=== PATIENT | male | born 1945 | race Caucasian/White ===

== ENCOUNTER 2021-07-10 08:52 | Inpatient (IN) | payer OTHER ==
[~2021-07-10] VITALS: Ht 177.8 cm; Wt 76.7 kg
--- NOTE | 2021-07-10 09:00 | NUR ---
BROUGHT BACK TO BED #5 VIA WHEELCHAIR AND PLACED IN BED, TRIAGED. REPORT GIVEN TO MALACHI
--- NOTE | 2021-07-10 09:07 | NUR ---
ER at bedside examining patient.
--- NOTE | 2021-07-10 09:09 | NUR ---
EKG performed at by GIANT TIRE REPAIRER. Physician given copy of EKG for review.
--- NOTE | 2021-07-10 09:11 | NUR ---
Covid swab done and sent to lab.
[2021-07-10] MEDS ORDERED: FUROSEMIDE 40 MG/4 ML VIAL IVP ONE (09:15)
--- NOTE | 2021-07-10 09:22 | NUR ---
Chest X-Ray being done at bedside.
--- NOTE | 2021-07-10 09:34 | NUR ---
# 20 gauge angiocath placed to right AC. Use of asceptic technique. Opsite placed over site. Blood return noted. Blood for lab drawn from site. Flushed with 10 cc of normal saline. No evidence of infiltration noted. Patient tolerated well.
--- NOTE | 2021-07-10 09:41 | NUR ---
Pt not able to provide urine sample at this time so urinal left at bedside.
[2021-07-10 10:00] LABS: BASOPHILS # (AUTO) 0.1 K/uL (0.0-0.2); BASOPHILS % (AUTO) 0.4 % (0.0-2.0); EOSINOPHILS % (AUTO) 0.2 % (0.0-4.0); HEMATOCRIT 27.9 % (36-54); HEMOGLOBIN 9.1 g/dL (14.0-18.0); LYMPHOCYTES # (AUTO) 0.6 K/uL (1.0-5.5); LYMPHOCYTES % (AUTO) 4.7 % (20.5-51.5); MEAN CORPUSCULAR HEMOGLOBIN 31 pg (27-31); MEAN CORPUSCULAR HGB CONC 33 % (32-36); MEAN CORPUSCULAR VOLUME 94 fL (79.0-98.0); MONOCYTES # (AUTO) 1.2 K/uL (0.0-1.0); MONOCYTES % (AUTO) 9.4 % (1.7-9.3); NEUTROPHILS # (AUTO) 11.2 K/uL (1.8-7.7); NEUTROPHILS % (AUTO) 85.3 % (40.0-70.0); PLATELET COUNT (AUTO) 96 K/uL (130-430); RED BLOOD CELL COUNT(AUTO) 2.97 MIL/uL (4.2-6.2); RED CELL DISTRIBUTION WIDTH 20.5 % (9.0-15.0); WHITE BLOOD COUNT (AUTO) 13.2 K/uL (4.8-10.8)
[2021-07-10 10:27] LABS: ANION GAP 8 (5-15); CALCIUM 8.6 mg/dL (8.4-11.0); CHLORIDE 100 mmol/L (98-107); GLUCOSE 111 mg/dL (70-99); POTASSIUM 3.6 mmol/L (3.5-5.1); SODIUM SERUM 133 mmol/L (136-145); UREA NITROGEN, BLOOD 38 mg/dL (8-21)
[2021-07-10 10:31] LABS: INR 1.5 (0.80-1.20); PROTHROMBIN TIME 15.3 SECS (9.5-12.5)
[2021-07-10 10:35] LABS: ALANINE AMINOTRANSFERASE 9 U/L (12-78); ALBUMIN 2.7 g/dL (3.4-4.8); ASPARTATE AMINOTRANSFERASE 19 U/L (10-37); LIPASE 13 U/L (73-393); TOTAL BILIRUBIN 2.1 mg/dL (0.0-1.0)
--- NOTE | 2021-07-10 10:59 | NUR ---
Urine specimen collected and analyzed in ER. Results given to ER .
--- NOTE | 2021-07-10 11:26 | NUR ---
Personal belonging list completed and documented.
[2021-07-10] MEDS ORDERED: FAMO20TA8 PO (11:31)
[2021-07-10] MEDS ORDERED: SOTA80TA PO (11:31)
[2021-07-10] MEDS ORDERED: ASPI-1457 PO (11:31)
[2021-07-10] MEDS ORDERED: ONDA4TAB55 PO (11:31)
[2021-07-10] MEDS ORDERED: CYAN100082 PO (11:31)
[2021-07-10] MEDS ORDERED: FURO-150 PO (11:31)
--- NOTE | 2021-07-10 11:31 | NUR ---
Medication reconciliation completed with information provided by patient. Any prior medication reconciliation on file was reviewed and corrected.
--- NOTE | 2021-07-10 11:54 | NUR ---
Admit bed requested Patient will be admitted to care of . Admitted to medSurg unit. Diagnosis Liver Cirrhosis & Weakness Inpatient Yes Observation No Orientation concerns or request close to nursing station No Covid Status negative On vent or bipap No Isolation requirements No Needs a sitter No From Home Yes Requires Dialysis No Med Rec Completed Yes
--- NOTE | 2021-07-10 13:59 | NUR ---
Patient will be admitted to care of Dr. Heaton. Admitted to MedSurg unit. Will go to room 119B. Belongings list completed. Complete and up to date summary report printed. SBAR report to be given at bedside with opportunity for questions.
[2021-07-10 14:00] VITALS: BP_SYST 133
--- NOTE | 2021-07-10 14:00 | NUR ---
Initial Note Patient admitted to Tele unit, came from ER. Received report from Rosibel. Patient is alert and oriented. Obtained vital signs. Patient states no pain. No respiratory distress noted. Head of the bed elevated, patient is eating some Jell-O. Oriented patient to room and call light use. Bed is locked, alarm is on, and at lowest position. Three side rails are up. Phone and call light are within reach. Patient's is at bedside.
[2021-07-10 14:47] VITALS: BP_SYST 133
--- NOTE | 2021-07-10 16:00 | NUR ---
Patient is resting in bed with eyes closed. Patient reports no pain. No distress noted. Call light within reach. Safety precautions in place.
--- NOTE | 2021-07-10 16:15 | NUR ---
Notes Ecchymosis of chest, R. groin, L groin and hip. Patient also has ecchymosis of R. hand. Pictures taken.
[2021-07-10 16:45] VITALS: BP_SYST 128
--- NOTE | 2021-07-10 18:30 | NUR ---
Closing Notes Patient is in High Honeycutt's position. Patient states "not really hungry" but drinking shaun marlene. Patient is eating little bites of dinner. No pain or distress noted. Safety precautions in place. Call light within reach. and daughter at bedside.
--- NOTE | 2021-07-10 19:35 | NUR ---
OPENING NOTE PT IS SITING UP IN BED WITH HIS BEDSIDE. NO APPARENT DISTRESS NOTED AT THIS TIME. PT IS IN 6/10 PAIN WITH ABDOMINAL DISCOMFORT. BED IS IN LOWEST POSITION WITH FALL AND SAFETY PRECAUTIONS IN PLACE. CALL LIGHT IS WITHIN REACH, PT EDUCATED ON HOW TO USE IT. ALL QUESTIONS ANSWERED AT THIS TIME
[2021-07-10 20:00] VITALS: BP_SYST 113
--- NOTE | 2021-07-10 22:05 | NUR ---
Paged Jair Sampson S/w [place]
[2021-07-10] MEDS: KETOROLAC TROMETHAMINE 30 MG VIAL IVP PRN (22:29)
[2021-07-10] MEDS ORDERED: KETOROLAC TROMETHAMINE 30 MG VIAL IVP PRN (22:45)
[2021-07-10] MEDS: CYANOCOBALAMIN 1000 mCg TABLET PO SCH (22:58)
[2021-07-10] MEDS: FAMOTIDINE 20 MG TABLET PO SCH (22:59)
[2021-07-10] MEDS: SOTALOL HCL 80 MG TABLET PO SCH (23:00)
[2021-07-10] MEDS: ONDANSETRON HCL 4 MG/2 ML VIAL IVP PRN (23:26)
[2021-07-10] MEDS: NORMAL SALINE 5 ML DISP.SYRIN IVF SCH ×2 (23:30)
[2021-07-11 01:12] VITALS: BP_SYST 128
--- NOTE | 2021-07-11 02:34 | NUR ---
CONSULTATION PAGED REASON FOR CONSULTATION: chf WAS CONSULT CALLED? Y PERSON WHO WAS NOTIFIED: Abdulaziz CONSULTING PHYSICIAN: Aamir Sampson REQUESTING PHYSICIAN: Jair Sampson
--- NOTE | 2021-07-11 02:46 | NUR ---
CONSULTATION PAGED REASON FOR CONSULTATION: cirrhosis WAS CONSULT CALLED? Y PERSON WHO WAS NOTIFIED: Maria De Jesus CONSULTING PHYSICIAN: Dr. Keys (Dr. Ren is conflict resolution professional REQUESTING PHYSICIAN: Jair Sampson
--- NOTE | 2021-07-11 03:02 | NUR ---
CONSULTATION PAGED REASON FOR CONSULTATION: leukocytosis WAS CONSULT CALLED? Y PERSON WHO WAS NOTIFIED: Maria De Jesus CONSULTING PHYSICIAN: Howard Lopez REQUESTING PHYSICIAN: Jair Sampson
--- NOTE | 2021-07-11 04:24 | NUR ---
CONSULTATION PAGED REASON FOR CONSULTATION: brit WAS CONSULT CALLED? Y PERSON WHO WAS NOTIFIED: Maria De Jesus CONSULTING PHYSICIAN: Sarah Montoya REQUESTING PHYSICIAN: Jair Sampson
--- NOTE | 2021-07-11 06:52 | NUR ---
CLOSING NOTE PT IS SEMI FOWLERS WITH HIS EYES CLOSED. NO APPARENT DISTRESS NOTED AT THIS TIME. BED IS IN LOWEST POSITION WITH SAFETY PRECAUTIONS IN PLACE. CALL LIGHT IS WITHIN REACH.
[2021-07-11 08:00] VITALS: BP_SYST 95
--- NOTE | 2021-07-11 08:00 | NUR ---
Initial Notes Patient is lying in bed. Ultrasound being done at bedside. Vitals obtained. No pain or distress noted. Family at bedside. Updated plan of care. Safety precautions in place. Call light within reach.
[2021-07-11 08:02] LABS: BASOPHILS % (AUTO) 0.4 % (0.0-2.0); EOSINOPHILS # (AUTO) 0.1 K/uL (0.0-0.4); EOSINOPHILS % (AUTO) 0.8 % (0.0-4.0); HEMATOCRIT 24.6 % (36-54); HEMOGLOBIN 8.2 g/dL (14.0-18.0); LYMPHOCYTES # (AUTO) 0.6 K/uL (1.0-5.5); LYMPHOCYTES % (AUTO) 6.1 % (20.5-51.5); MEAN CORPUSCULAR HEMOGLOBIN 31 pg (27-31); MEAN CORPUSCULAR HGB CONC 33 % (32-36); MEAN CORPUSCULAR VOLUME 93 fL (79.0-98.0); MONOCYTES # (AUTO) 1.1 K/uL (0.0-1.0); MONOCYTES % (AUTO) 11.2 % (1.7-9.3); NEUTROPHILS # (AUTO) 7.8 K/uL (1.8-7.7); NEUTROPHILS % (AUTO) 81.5 % (40.0-70.0); PLATELET COUNT (AUTO) 67 K/uL (130-430); RED BLOOD CELL COUNT(AUTO) 2.64 MIL/uL (4.2-6.2); RED CELL DISTRIBUTION WIDTH 20.4 % (9.0-15.0); WHITE BLOOD COUNT (AUTO) 9.6 K/uL (4.8-10.8)
[2021-07-11 08:03] LABS: ANION GAP 8 (5-15); CALCIUM 8.1 mg/dL (8.4-11.0); CHLORIDE 99 mmol/L (98-107); CREATININE 1.92 mg/dL (0.55-1.30); GLUCOSE 93 mg/dL (70-99); PHOSPHORUS 4.6 mg/dL (2.7-4.5); POTASSIUM 3.1 mmol/L (3.5-5.1); SODIUM SERUM 132 mmol/L (136-145); UREA NITROGEN, BLOOD 39 mg/dL (8-21)
[2021-07-11] MEDS: FAMOTIDINE 20 MG TABLET PO SCH ×2 (08:47→20:51)
[2021-07-11] MEDS: ASPIRIN 81 MG TABLET(ECOTRIN) PO SCH (08:47)
[2021-07-11] MEDS: CYANOCOBALAMIN 1000 mCg TABLET PO SCH ×2 (08:47→20:51)
[2021-07-11] MEDS: SOTALOL HCL 80 MG TABLET PO SCH ×2 (08:51→20:51)
[2021-07-11] MEDS ORDERED: FUROSEMIDE 20 MG/2 ML VIAL IVP SCH (09:00)
[2021-07-11] MEDS: ALBUMIN HUMAN 5% 250 ML IV SCH ×2 (09:38→21:01)
[2021-07-11 12:00] VITALS: BP_SYST 96
--- NOTE | 2021-07-11 12:00 | NUR ---
Notes Patient is resting. Family at bedside. No pain or distress noted. Safety precautions in place. Call light within reach.
[2021-07-11] MEDS ORDERED: POTASSIUM CHLORIDE 20 MEQ TAB.PRT.SR PO ONE (12:30)
[2021-07-11 13:44] LABS: ERYTHROCYTE SEDIMENTATION RATE 11 MM/HR (0-15)
--- NOTE | 2021-07-11 13:45 | NUR ---
Notes Spoke to ultrasound staff, paracentesis will be done tomorrow.
--- NOTE | 2021-07-11 14:30 | NUR ---
blood culture- Called dr. Hari wilcox Re; blood culture results.
--- NOTE | 2021-07-11 14:41 | NUR ---
paracentesis received a call from Subhash of Radiology. per Subhash paracentesis will be done Thursday instead, no tech available Thursday
[2021-07-11] MEDS: VANCOMYCIN HCL 1,000 MG in NS 250 ML IV SCH (15:54)
[2021-07-11 16:00] VITALS: BP_SYST 119
[2021-07-11] MEDS: IBUPROFEN 600 MG TABLET PO PRN (16:07)
[2021-07-11] MEDS: ONDANSETRON HCL 4 MG/2 ML VIAL IVP PRN (16:07)
--- NOTE | 2021-07-11 16:15 | NUR ---
Notes Patient has been cleaned and repositioned. Obtained vitals and urine specimen. Patient is lying down, resting. Safety precautions in place and call light within reach.
[2021-07-11 17:41] LABS: BILIRUBIN,URINE NEGATIVE (NEGATIVE); BLOOD, URINE NEGATIVE (NEGATIVE); CLARITY/URINE CLEAR (CLEAR); COLOR,URINE YELLOW (YELLOW); GLUCOSE,URINE NEGATIVE (NEGATIVE); KETONES,URINE TRACE (NEGATIVE); LEUKOCYTE ESTERASE ,URINE NEGATIVE (NEGATIVE); NITRITE, URINE NEGATIVE (NEGATIVE); PH,URINE 5.5 (5.0-8.0); PROTEIN URINE NEGATIVE (NEGATIVE); UROBILINOGEN,URINE 0.2 (0.2-1.0)
--- NOTE | 2021-07-11 18:25 | NUR ---
Closing Notes Patient is eating dinner, head of the bed is elevated. No distress noted. No pain reported. Family is at bedside. Safety precautions in place. Call light within reach.
[2021-07-11 20:00] VITALS: BP_SYST 92
--- NOTE | 2021-07-11 20:00 | NUR ---
REC'D PT FROM AM NURSE LYING IN BED AWAKE, AOX3, NO DISTRESS OR DISCOMFORT NOTED, BREATHING EVEN AND UNLABORED, JUNCTIONAL/ST DEPRESSION NOTED ON TELE MONITOR, BP STABLE, DENIES PAIN, SIDE RAILS UP X2, BED IN LOWEST WITH WHEELS LOCKED, HOB ELEVATED 30 DEGREE, CALL LIGHT WITHIN IMMEDIATE REACH, EDUCATED PT TO CALL FOR ASSISTANCE WHEN NEEDED, PT VERBALIZED UNDERSTANDING, REPOSITIONED PER COMFORT, WILL CONTINUE TO MONITOR.
[2021-07-11 22:41] LABS: URINE SODIUM, RANDOM 8 mmol/L (40-220)
[2021-07-11] MEDS: NORMAL SALINE 5 ML DISP.SYRIN IVF SCH ×2 (23:07)
--- NOTE | 2021-07-12 | NUR ---
NO CHANGES NOTED FROM PREVIOUS ASSESSMENT, RESTING COMFORTABLY IN BED, WILL CONTINUE TO MONITOR.
[2021-07-12 00:29] VITALS: BP_SYST 99
[2021-07-12] MEDS: NORMAL SALINE 5 ML DISP.SYRIN IVF SCH ×4 (05:59→22:02)
[2021-07-12] MEDS: KETOROLAC TROMETHAMINE 30 MG VIAL IVP PRN (06:21)
--- NOTE | 2021-07-12 06:30 | NUR ---
ROUNDED ON PT, NO S/S OF DISTRESS OR DISCOMFORT NOTED, BREATHING EVEN AND UNLABORED, MEDICATED WITH PAIN MED PRN, RESTING COMFORTABLY, ALL FALLS PROTOCOLS MAINTAINED, CALL LIGHT WITHIN REACH, WILL CONTINUE TO MONITOR.
--- NOTE | 2021-07-12 07:14 | NUR ---
SHIFT CHANGE REPORT REPORT GIVEN TO OTF MCPHERSON FOR CONTINUITY OF CARE, ALL QUESTIONS WERE ANSWERED AND RN VERBALIZED UNDERSTANDING.
[2021-07-12 08:00] VITALS: BP_SYST 103
[2021-07-12 08:23] LABS: BASOPHILS # (AUTO) 0.1 K/uL (0.0-0.2); EOSINOPHILS # (AUTO) 0.1 K/uL (0.0-0.4); EOSINOPHILS % (AUTO) 0.7 % (0.0-4.0); HEMATOCRIT 25.1 % (36-54); HEMOGLOBIN 8.3 g/dL (14.0-18.0); LYMPHOCYTES # (AUTO) 0.5 K/uL (1.0-5.5); LYMPHOCYTES % (AUTO) 3.2 % (20.5-51.5); MEAN CORPUSCULAR HEMOGLOBIN 31 pg (27-31); MEAN CORPUSCULAR HGB CONC 33 % (32-36); MEAN CORPUSCULAR VOLUME 93 fL (79.0-98.0); MONOCYTES # (AUTO) 1.6 K/uL (0.0-1.0); MONOCYTES % (AUTO) 10.3 % (1.7-9.3); NEUTROPHILS # (AUTO) 12.9 K/uL (1.8-7.7); NEUTROPHILS % (AUTO) 84.8 % (40.0-70.0); PLATELET COUNT (AUTO) 53 K/uL (130-430); RED BLOOD CELL COUNT(AUTO) 2.71 MIL/uL (4.2-6.2); RED CELL DISTRIBUTION WIDTH 19.9 % (9.0-15.0); WHITE BLOOD COUNT (AUTO) 15.3 K/uL (4.8-10.8)
[2021-07-12 08:51] LABS: ALANINE AMINOTRANSFERASE 12 U/L (12-78); ALBUMIN 2.6 g/dL (3.4-4.8); ANION GAP 7 (5-15); ASPARTATE AMINOTRANSFERASE 17 U/L (10-37); C-REACTIVE PROTEIN QUANT 9.2 mg/dL (0-0.5); CALCIUM 7.7 mg/dL (8.4-11.0); CHLORIDE 104 mmol/L (98-107); CREATININE 2.81 mg/dL (0.55-1.30); GLUCOSE 106 mg/dL (70-99); PHOSPHORUS 4.2 mg/dL (2.7-4.5); POTASSIUM 4.1 mmol/L (3.5-5.1); SODIUM SERUM 134 mmol/L (136-145); TOTAL BILIRUBIN 2.2 mg/dL (0.0-1.0); UREA NITROGEN, BLOOD 50 mg/dL (8-21)
[2021-07-12 08:53] LABS: INR 1.7 (0.80-1.20); PROTHROMBIN TIME 17.4 SECS (9.5-12.5)
[2021-07-12] MEDS: ASPIRIN 81 MG TABLET(ECOTRIN) PO SCH (08:53)
[2021-07-12] MEDS: FAMOTIDINE 20 MG TABLET PO SCH ×2 (08:53→22:06)
[2021-07-12] MEDS: CYANOCOBALAMIN 1000 mCg TABLET PO SCH ×2 (08:58→22:02)
[2021-07-12] MEDS: IBUPROFEN 600 MG TABLET PO PRN (08:58)
[2021-07-12] MEDS: SOTALOL HCL 80 MG TABLET PO SCH ×2 (08:58→22:05)
[2021-07-12 09:10] LABS: ERYTHROCYTE SEDIMENTATION RATE 7 MM/HR (0-15)
[2021-07-12 09:40] LABS: TOTAL IRON BIND. CAPACITY 73 ug/dL (250-450)
[2021-07-12] MEDS ORDERED: ALBUMIN HUMAN 25% 100 ML IV SCH (12:15)
[2021-07-12 12:27] VITALS: BP_SYST 95
[2021-07-12] MEDS: VANCOMYCIN HCL 1,000 MG in NS 250 ML IV SCH (15:23)
[2021-07-12 16:51] VITALS: BP_SYST 101
[2021-07-12] MEDS: ONDANSETRON HCL 4 MG/2 ML VIAL IVP PRN (16:51)
[2021-07-12] MEDS: ALBUMIN HUMAN 25% 100 ML IV SCH ×2 (16:52→23:01)
[2021-07-12 20:00] VITALS: BP_SYST 93
[2021-07-13] VITALS: BP_SYST 114
[2021-07-13 00:36] VITALS: BP_SYST 110
[2021-07-13] MEDS: ALBUMIN HUMAN 25% 100 ML IV SCH (04:24)
[2021-07-13 07:06] LABS: AFP, TUMOR MARKER 1.5 ng/mL (0.0-8.4); ALPHA-1-ANTITRYPSIN, S 115 mg/dL (101-187); FERRITIN 248 ng/mL (30-400)
[2021-07-13 07:49] LABS: HEMATOCRIT 22.2 % (36-54); HEMOGLOBIN 7.3 g/dL (14.0-18.0); MEAN CORPUSCULAR HEMOGLOBIN 30 pg (27-31); MEAN CORPUSCULAR HGB CONC 33 % (32-36); MEAN CORPUSCULAR VOLUME 92 fL (79.0-98.0); RED BLOOD CELL COUNT(AUTO) 2.41 MIL/uL (4.2-6.2); RED CELL DISTRIBUTION WIDTH 19.4 % (9.0-15.0); WHITE BLOOD COUNT (AUTO) 13.1 K/uL (4.8-10.8)
[2021-07-13 08:06] LABS: HEPATITIS A AB, IgM Negative (Negative); HEPATITIS B CORE AB, IgM Negative (Negative); HEPATITIS B SURFACE AG Negative (Negative)
[2021-07-13 08:13] LABS: PLATELET COUNT (AUTO) 45 K/uL (130-430)
[2021-07-13 08:15] LABS: ALANINE AMINOTRANSFERASE 12 U/L (12-78); ALBUMIN 3.4 g/dL (3.4-4.8); ANION GAP 12 (5-15); ASPARTATE AMINOTRANSFERASE 12 U/L (10-37); CALCIUM 8.6 mg/dL (8.4-11.0); CHLORIDE 100 mmol/L (98-107); CREATININE 3.54 mg/dL (0.55-1.30); GLUCOSE 81 mg/dL (70-99); PHOSPHORUS 4.7 mg/dL (2.7-4.5); POTASSIUM 3.3 mmol/L (3.5-5.1); SODIUM SERUM 134 mmol/L (136-145); TOTAL BILIRUBIN 2.4 mg/dL (0.0-1.0); UREA NITROGEN, BLOOD 53 mg/dL (8-21)
[2021-07-13 08:20] LABS: C-REACTIVE PROTEIN QUANT 9.5 mg/dL (0-0.5)
[2021-07-13] MEDS: SOTALOL HCL 80 MG TABLET PO SCH ×2 (09:00→21:00)
[2021-07-13] MEDS: FAMOTIDINE 20 MG TABLET PO SCH ×2 (09:48→20:59)
[2021-07-13] MEDS: CYANOCOBALAMIN 1000 mCg TABLET PO SCH ×2 (09:48→20:59)
[2021-07-13] MEDS: ASPIRIN 81 MG TABLET(ECOTRIN) PO SCH (09:48)
[2021-07-13 10:00] LABS: ERYTHROCYTE SEDIMENTATION RATE 2 MM/HR (0-15)
[2021-07-13 11:15] LABS: ATYPICAL LYMPHOCYTES % 0 % (0-0); BAND % (MANUAL) 3 % (0-6); BASOPHILS % (MANUAL) 0 % (0-2); EOSINOPHILS % (MANUAL) 0 % (0-7); LYMPHOCYTES % (MANUAL) 2 % (20-46); MONOCYTES % (MANUAL) 3 % (0-11)
[2021-07-13] MEDS ORDERED: POTASSIUM CHLORIDE 20 MEQ TAB.PRT.SR PO ONE (12:30)
--- NOTE | 2021-07-13 12:33 | NUR ---
CONSULT [facility]EMATOLOGY [phone] S/W [facility]
[2021-07-13 12:59] VITALS: BP_SYST 105
[2021-07-13] MEDS ORDERED: ALBUMIN HUMAN 25% 50 ML IV ONE (13:00)
[2021-07-13] MEDS: OCTREOTIDE ACETATE 100 MCG/ML AMP SUBCUT SCH ×2 (14:00→21:00)
[2021-07-13] MEDS: NORMAL SALINE 5 ML DISP.SYRIN IVF SCH ×2 (14:00→21:00)
--- NOTE | 2021-07-13 14:15 | NUR ---
BT INITIATION: Consent signed per PATIENT agreeing to administration of blood. Blood has been type and crossmatched. Blood sent from blood bank. Information on unit of blood checked against patient wristband at bedside by two nurses. All information matches. Patient or responsible green party informed of potential complications associated with blood transfusion. Informed of possible transfusion reaction symptoms. Aware of need to notify nurse at once of itching, shortness of breath, flushing, feeling of impending doom, or other symptoms not previously present. Vital signs taken within 5 minutes prior to initiation of transfusion. RN will remain with patient for first 15 minutes of transfusion at which time vital signs will be re-assessed.
[2021-07-13] MEDS: MIDODRINE HCL 5 MG TABLET (PROAMATINE) PO SCH ×2 (15:00→20:59)
[2021-07-13 16:00] VITALS: BP_SYST 95
[2021-07-13] MEDS: VANCOMYCIN HCL 1,000 MG in NS 250 ML IV SCH (16:00)
[2021-07-13 16:53] LABS: BF APPEARANCE UNSPUN CLEAR (CLEAR); SOURCE/TYPE ,BODY FLUID PARACENTESIS
[2021-07-13 16:54] LABS: BODY FLUID COLOR YELLOW (LT YELLOW); BODY FLUID TOTAL VOLUME 6075 mL; LYMPHOCYTES, BODY FLUID 23 %; NEUTROPHIL, BODY FLUID 77 %; RBC, BODY FLUID 11 /uL; WBC, BODY FLUID 122 /uL
[2021-07-13 20:20] VITALS: BP_SYST 101
--- NOTE | 2021-07-13 20:20 | NUR ---
PM ASSESSMENT; -pt is a/ox 3, episode of forgetfulness noted. Pt denies any chest pain,pain,sob,or any acute distress. IV site patent flushed w/ NS, no s/ s any infiltration noted. Discussed poc, all safety measures, and inform pt not to get OOB, to use call light for assistance, pt & family verbalized understanding. Generalized weakness noted. Bandaid of rt side of abdomen s/p paracentesis site. Fall precaution in place. All safety measures in place. Call light w/in reach, side rails x3. Continue to monitor pt.
--- NOTE | 2021-07-13 21:00 | NUR ---
ROUNDS; -Pt denies any chest pain,pain,sob,or any acute distress. Gave all routine po meds except Betapace b/c low BP 101/54, 60. Fall precaution in place. No family is at bedside this time. All safety measures in place. Call light w/in reach, side rails x3. Continue to monitor pt
--- NOTE | 2021-07-14 00:30 | NUR ---
ROUNDS; Bowel MOVT -Pt denies any chest pain,pain,sob,or any acute distress. Pt is incontinent of large soft yellow bowel movt. Provided perineal care,now pt is dry and cleaned. Fall precaution in place. All safety measures in place. Call light w/in reach, side rails x3. Continue to monitor pt
[2021-07-14 00:46] VITALS: BP_SYST 108
--- NOTE | 2021-07-14 02:15 | NUR ---
ROUNDS; -Pt is asleep. NO s/s any acute distress noted. Fall precaution in place. All safety measures in place. Call light w/in reach, side rails x3. Continue to monitor pt
--- NOTE | 2021-07-14 04:04 | NUR ---
ROUNDS; -Pt is asleep. NO s/s any acute distress noted. Pt's condition stable. Fall precaution in place. All safety measures in place. Call light w/in reach, side rails x3. Continue to monitor pt
[2021-07-14] MEDS: NORMAL SALINE 5 ML DISP.SYRIN IVF SCH ×3 (05:19→21:46)
[2021-07-14] MEDS: OCTREOTIDE ACETATE 100 MCG/ML AMP SUBCUT SCH ×3 (05:19→21:53)
--- NOTE | 2021-07-14 06:47 | NUR ---
CLOSING NOTES; -pt is resting in comfortably. No s/s any chest pain,pain,sob,or any acute distress noted. IV site patent flushed w/ NS, no s/ s any infiltration noted. Fall precaution in place. All safety measures in place. Call light w/in reach, side rails x3. Will endorse to next nurse to continue care.
[2021-07-14 06:48] LABS: BASOPHILS % (AUTO) 0.3 % (0.0-2.0); EOSINOPHILS # (AUTO) 0.1 K/uL (0.0-0.4); HEMATOCRIT 31.7 % (36-54); HEMOGLOBIN 10.6 g/dL (14.0-18.0); LYMPHOCYTES # (AUTO) 0.6 K/uL (1.0-5.5); LYMPHOCYTES % (AUTO) 4.4 % (20.5-51.5); MEAN CORPUSCULAR HEMOGLOBIN 31 pg (27-31); MEAN CORPUSCULAR HGB CONC 34 % (32-36); MEAN CORPUSCULAR VOLUME 92 fL (79.0-98.0); MONOCYTES # (AUTO) 1.9 K/uL (0.0-1.0); MONOCYTES % (AUTO) 14.3 % (1.7-9.3); NEUTROPHILS # (AUTO) 10.5 K/uL (1.8-7.7); RED BLOOD CELL COUNT(AUTO) 3.46 MIL/uL (4.2-6.2); RED CELL DISTRIBUTION WIDTH 18.6 % (9.0-15.0); WHITE BLOOD COUNT (AUTO) 13.1 K/uL (4.8-10.8)
[2021-07-14 07:07] LABS: FOLATE (FOLIC ACID) >20.0 ng/mL (>3.0)
[2021-07-14 07:10] LABS: ANION GAP 11 (5-15); CALCIUM 8.9 mg/dL (8.4-11.0); CHLORIDE 101 mmol/L (98-107); CREATININE 4.29 mg/dL (0.55-1.30); GLUCOSE 109 mg/dL (70-99); PHOSPHORUS 5.2 mg/dL (2.7-4.5); POTASSIUM 4.3 mmol/L (3.5-5.1); SODIUM SERUM 134 mmol/L (136-145); UREA NITROGEN, BLOOD 59 mg/dL (8-21)
[2021-07-14 07:37] LABS: C-REACTIVE PROTEIN QUANT 11.8 mg/dL (0-0.5)
[2021-07-14 08:00] VITALS: BP_SYST 101
--- NOTE | 2021-07-14 08:00 | NUR ---
Opening Notes Patient is laying in bed awake. A/O x4. Vitals as charted. No apparent distress. Patient denies pain. Call light within reach. Safety and fall precautions in place.
[2021-07-14 08:08] LABS: PLATELET COUNT (AUTO) 47 K/uL (130-430)
--- NOTE | 2021-07-14 08:16 | NUR ---
HEMATOLOGY PAGED: CALLED DR TUCKER'S EXCHANGE AND LEFT MESSAGE C/O EXCHANGE RANDY FOR CRITICAL LAB.
[2021-07-14 08:28] LABS: ERYTHROCYTE SEDIMENTATION RATE 2 MM/HR (0-15)
[2021-07-14] MEDS: SOTALOL HCL 80 MG TABLET PO SCH ×2 (09:00→21:45)
[2021-07-14] MEDS: MIDODRINE HCL 5 MG TABLET (PROAMATINE) PO SCH ×3 (09:27→21:45)
[2021-07-14] MEDS: CYANOCOBALAMIN 1000 mCg TABLET PO SCH ×2 (09:27→21:45)
[2021-07-14] MEDS: ASPIRIN 81 MG TABLET(ECOTRIN) PO SCH (09:28)
[2021-07-14] MEDS: FAMOTIDINE 20 MG TABLET PO SCH ×2 (09:28→21:45)
[2021-07-14 13:30] VITALS: BP_SYST 108
[2021-07-14 16:05] VITALS: BP_SYST 125
[2021-07-14 17:11] LABS: HAPTOGLOBIN 16 mg/dL (34-355)
--- NOTE | 2021-07-14 19:00 | NUR ---
BLADDER SCAN: PT REFUSED BLADDER SCAN.
--- NOTE | 2021-07-14 19:43 | NUR ---
Closing Notes Patient is awake laying in bed. No apparent distress noted. Patient denies pain. Call light within reach. Safety and fall precautions in place. All needs met. Endorsed care to music orchestrator RN.
[2021-07-14 19:45] VITALS: BP_SYST 133
--- NOTE | 2021-07-14 19:45 | NUR ---
PM ASSESSMENT; -pt is confused, episode of forgetfulness noted. Pt attempted to get OOB w/o using call light for assistance during beginning of my shift. David-son was at bedside. Pt denies any chest pain,pain,sob,or any acute distress. IV site patent flushed w/ NS, no s/ s any infiltration noted. Discussed poc, all safety measures, fall precaution with son verbalized understanding. Son is okay to move his dad closer to nurses' station for safety measures. Will move patient to room 132-B when bed and room are cleaned. Generalized weakness noted. Bandaid of rt side of abdomen s/p paracentesis site. Fall precaution in place. All safety measures in place. Call light w/in reach, side rails x3. Continue to monitor pt.
--- NOTE | 2021-07-14 22:20 | NUR ---
ROUNDS; -Pt is not any acute distress. NO s/s any pain,sob,or any acute distress noted. Removed pt to a new bed with activated bed alarm working properly from Room 119-B to Room 132-B closer to nurses's station with all belongings taken. Beginning of my shift, pt was little confused and attempted to get OOB bed w/o using call light for assistance. Family-David is at bedside earlier. Explained the reason to David-family at bedside, he verbalized understanding for fall precaution and safety measures. Now, pt is lying in bed comfortably. All safety measures in place. Call light w/in reach. No family or visitor is at bedside this time. Cont to monitor pt.
[2021-07-14 23:00] VITALS: BP_SYST 119
--- NOTE | 2021-07-15 02:10 | NUR ---
ROUNDS; INCONT OF BOWEL MOVT AND PT REFUSED BLADDER SCAN -Pt had diarrhea with small blood noted. Also, pt was incont of urine. Provided perineal care and barrier cream applied, changed gown and sheet,now pt is cleaned and dry. Pt refused to have bladder scan even after explained the benefits and risks of this procedure. Pt's condition stable. Fall precaution in place. All safety measures in place. Call light w/in reach, side rails x3. Continue to monitor pt
--- NOTE | 2021-07-15 03:38 | NUR ---
ROUNDS; -Pt had dry hacking,no sputum noted. Pt is confused and agitated. Bed alarm in place. Fall precaution in place. All safety measures in place. Call light w/in reach, side rails x3. Continue to monitor pt
[2021-07-15] MEDS: OCTREOTIDE ACETATE 100 MCG/ML AMP SUBCUT SCH ×3 (05:20→22:34)
[2021-07-15] MEDS: NORMAL SALINE 5 ML DISP.SYRIN IVF SCH ×3 (05:22→22:34)
--- NOTE | 2021-07-15 05:26 | NUR ---
ROUNDS; -Pt is resting in bed comfortably. IV site patent flushed well w/ N,no s/s any infiltration, small blood stained noted, pt refused to change new IV dressing. Bed alarm in place. Fall precaution in place. All safety measures in place. Call light w/in reach, side rails x3. Continue to monitor pt
[2021-07-15 06:38] LABS: BASOPHILS # (AUTO) 0.1 K/uL (0.0-0.2); BASOPHILS % (AUTO) 0.6 % (0.0-2.0); EOSINOPHILS # (AUTO) 0.1 K/uL (0.0-0.4); EOSINOPHILS % (AUTO) 1.3 % (0.0-4.0); HEMATOCRIT 34.7 % (36-54); HEMOGLOBIN 11.4 g/dL (14.0-18.0); LYMPHOCYTES # (AUTO) 0.6 K/uL (1.0-5.5); MEAN CORPUSCULAR HEMOGLOBIN 30 pg (27-31); MEAN CORPUSCULAR HGB CONC 33 % (32-36); MEAN CORPUSCULAR VOLUME 93 fL (79.0-98.0); MONOCYTES # (AUTO) 1.9 K/uL (0.0-1.0); MONOCYTES % (AUTO) 16.6 % (1.7-9.3); NEUTROPHILS # (AUTO) 8.7 K/uL (1.8-7.7); NEUTROPHILS % (AUTO) 76.5 % (40.0-70.0); PLATELET COUNT (AUTO) 53 K/uL (130-430); RED BLOOD CELL COUNT(AUTO) 3.74 MIL/uL (4.2-6.2); RED CELL DISTRIBUTION WIDTH 18.1 % (9.0-15.0); WHITE BLOOD COUNT (AUTO) 11.3 K/uL (4.8-10.8)
--- NOTE | 2021-07-15 06:41 | NUR ---
CLOSING NOTES; -pt is now resting in bed comfortably. Pt had episodes of confusion and short term memory loss. Pt had multiple times of diarrhea loose yellow stool with small blood noted entire shift. NO s/s any chest pain,pain,sob,or any acute distress noted. IV site patent drsg with old blood stained and pt refused to change new IV drsg change. Bandaid of rt side of abdomen s/p paracentesis site. Fall precaution in place. All safety measures in place. Call light w/in reach, side rails x3. Will endorse to next nurse to cont care.
[2021-07-15 06:58] LABS: INR 1.7 (0.80-1.20); PROTHROMBIN TIME 17.2 SECS (9.5-12.5)
[2021-07-15 07:08] LABS: ALANINE AMINOTRANSFERASE 9 U/L (12-78); ANION GAP 15 (5-15); ASPARTATE AMINOTRANSFERASE 13 U/L (10-37); C-REACTIVE PROTEIN QUANT 10.6 mg/dL (0-0.5); CALCIUM 8.1 mg/dL (8.4-11.0); CHLORIDE 99 mmol/L (98-107); CREATININE 4.84 mg/dL (0.55-1.30); GLUCOSE 113 mg/dL (70-99); PHOSPHORUS 5.6 mg/dL (2.7-4.5); POTASSIUM 4.8 mmol/L (3.5-5.1); SODIUM SERUM 133 mmol/L (136-145); TOTAL BILIRUBIN 3.7 mg/dL (0.0-1.0); UREA NITROGEN, BLOOD 70 mg/dL (8-21)
[2021-07-15 08:00] VITALS: BP_SYST 123
[2021-07-15 08:06] LABS: FREE PSA 0.12 ng/mL; PROSTATE SPECIFIC AG TOTAL 1.5 ng/mL (0.0-4.0)
[2021-07-15 08:23] LABS: ERYTHROCYTE SEDIMENTATION RATE 2 MM/HR (0-15)
[2021-07-15 09:06] LABS: ANTI NUCLEAR AB WITH REFLEX Positive (Negative)
[2021-07-15] MEDS: LORazepam 2 MG/ML VIAL IVP PRN ×2 (09:53→18:55)
[2021-07-15] MEDS: MIDODRINE HCL 5 MG TABLET (PROAMATINE) PO SCH ×4 (09:59→20:53)
[2021-07-15] MEDS: ASPIRIN 81 MG TABLET(ECOTRIN) PO SCH (09:59)
[2021-07-15] MEDS: CYANOCOBALAMIN 1000 mCg TABLET PO SCH ×2 (10:00→20:53)
[2021-07-15] MEDS: SOTALOL HCL 80 MG TABLET PO SCH ×2 (10:00→20:53)
[2021-07-15] MEDS: FAMOTIDINE 20 MG TABLET PO SCH ×2 (10:00→21:00)
[2021-07-15 11:30] VITALS: BP_SYST 126
--- NOTE | 2021-07-15 11:51 | NUR ---
PHYSICAL THERAPY TREATMENT WILL BE HELD TODAY DUE TO THE PATIENT'S MEDICAL STATUS.
--- NOTE | 2021-07-15 13:28 | NUR ---
Dietitian Recommendations * Change diet to Renal * Encourage PO intake * Consider oral nutritional supplement if PO intake remains poor Please refer to Nutrition Assessment for details. Addendum: 07/15/21 at [address] Amended: Links added.
[2021-07-15 15:07] LABS: ANTI-SMOOTH MUSCLE AB 9 Units (0-19)
[2021-07-15 15:29] VITALS: BP_SYST 114
--- NOTE | 2021-07-15 16:05 | NUR ---
Collection Teller PROCESS VALIDATION ENGINEER Rabia responded to a request for social work support to discuss hospice services with family. PROCESS VALIDATION ENGINEER met with patient's Kerry and daughter Makayla Singh to discuss their desire to now pursue hospice services. PROCESS VALIDATION ENGINEER utilized both reflective and empathetic listening techniques to address their needs. The family identified [facility] as their first option. PROCESS VALIDATION ENGINEER informed family a packet would be faxed for review and the provider would contact them. PROCESS VALIDATION ENGINEER will continue to be available as needed.
--- NOTE | 2021-07-15 16:16 | NUR ---
patient refused midodrine pills, one pill was opened from package so that he could try to take it but he refused, so one pill was wasted and one was returned to [facility].
--- NOTE | 2021-07-15 16:18 | NUR ---
Catering Manager DOOR FITTER Rabia faxed a packet for review to [facility] DOOR FITTER contacted patient's daughter Makayla Singh to inform her of fax being sent. DOOR FITTER will continue to be available as needed.
[2021-07-16 00:46] VITALS: BP_SYST 94
--- NOTE | 2021-07-16 01:41 | NUR ---
pt's spouse asked for dnr paperwork to sign. form placed in chart and will be endorsed to day shift RN to f/u w MD. pt's spouse made aware of need for MD's signature and will wait to sign. pt alert, appears confused, and occasionally yells. pt sits up and family comforts pt. pt moves arms non-purposefully. pt's family asked for ativan d/t pt being anxious, restless, and unable to be calmed otherwise. med given per family request.
--- NOTE | 2021-07-16 06:00 | NUR ---
ativan 1mg given at about 0130 per family request. waste witnessed; pt's armband scanned. medication scanned. SAVE was pressed on COW screen. later this shift entries did not appear. medication again retrieved from tenzin brock witness of 1mg waste. pt to receive remainder per agitated state. family at bedside.
[2021-07-16] MEDS: LORazepam 2 MG/ML VIAL IVP PRN (06:08)
--- NOTE | 2021-07-16 06:16 | NUR ---
Saline lock d/c'd. pt has no viable veins and is uncooperative. Dr Brittany Heaton's exchng notified for a change in route for ativan (from IVP to IM) and to notify Dr of no veinous access and no available route for octreotide.
--- NOTE | 2021-07-16 06:33 | NUR ---
skin tear to L wrist photographed and optifoam dressing applied.
[2021-07-16] MEDS: LORazepam 1 MG TABLET PO PRN ×2 (06:56→11:07)
[2021-07-16 07:15] LABS: ANION GAP 16 (5-15); CHLORIDE 100 mmol/L (98-107); CREATININE 5.17 mg/dL (0.55-1.30); GLUCOSE 91 mg/dL (70-99); PHOSPHORUS 6.1 mg/dL (2.7-4.5); POTASSIUM 4.8 mmol/L (3.5-5.1); SODIUM SERUM 133 mmol/L (136-145); UREA NITROGEN, BLOOD 76 mg/dL (8-21)
[2021-07-16 07:43] LABS: BASOPHILS % (AUTO) 0.3 % (0.0-2.0); EOSINOPHILS # (AUTO) 0.1 K/uL (0.0-0.4); HEMATOCRIT 30.3 % (36-54); HEMOGLOBIN 10.2 g/dL (14.0-18.0); LYMPHOCYTES # (AUTO) 0.4 K/uL (1.0-5.5); LYMPHOCYTES % (AUTO) 3.7 % (20.5-51.5); MEAN CORPUSCULAR HEMOGLOBIN 31 pg (27-31); MEAN CORPUSCULAR HGB CONC 34 % (32-36); MEAN CORPUSCULAR VOLUME 92 fL (79.0-98.0); MONOCYTES # (AUTO) 1.2 K/uL (0.0-1.0); MONOCYTES % (AUTO) 11.9 % (1.7-9.3); NEUTROPHILS # (AUTO) 8.2 K/uL (1.8-7.7); PLATELET COUNT (AUTO) 50 K/uL (130-430); RED BLOOD CELL COUNT(AUTO) 3.31 MIL/uL (4.2-6.2); RED CELL DISTRIBUTION WIDTH 18.1 % (9.0-15.0); WHITE BLOOD COUNT (AUTO) 9.8 K/uL (4.8-10.8)
[2021-07-16 08:00] VITALS: BP_SYST 116
[2021-07-16] MEDS: SOTALOL HCL 80 MG TABLET PO SCH ×2 (08:52→23:56)
[2021-07-16] MEDS: MIDODRINE HCL 5 MG TABLET (PROAMATINE) PO SCH ×4 (08:57→23:55)
[2021-07-16] MEDS: CYANOCOBALAMIN 1000 mCg TABLET PO SCH ×3 (08:57→23:55)
[2021-07-16] MEDS: ASPIRIN 81 MG TABLET(ECOTRIN) PO SCH ×2 (08:57→09:00)
[2021-07-16] MEDS: FAMOTIDINE 20 MG TABLET PO SCH ×3 (08:57→23:56)
[2021-07-16 09:23] LABS: NEUTROPHILS % (AUTO) 83.1 % (40.0-70.0)
--- NOTE | 2021-07-16 11:19 | NUR ---
Curtain Stretcher Assembler VONNIE Camarillo received a call from June at [facility] sharing they will be accepting patient but will not be able to admit till tomorrow 07/17/2021. June also shared the was concerned as she was informed the patient was scheduled to be discharged today. VONNIE informed Copyholder Farrah and Circuit Recorder to inform them of update. As advised, VONNIE informed June the hospital is aware they he will need to be discharged tomorrow. Addendum: 07/16/21 at 1124 by Rabia SHANKAR VONNIE Camarillo received an update from June at [facility]: -senior group manager time 930am - [facility]
[2021-07-16 11:31] VITALS: BP_SYST 109
[2021-07-16] MEDS ORDERED: MIDO5TAB4 PO (11:31)
[2021-07-16] MEDS ORDERED: HALOPERIDOL LACTATE 5 MG/ML VIAL IM ONE (12:45)
--- NOTE | 2021-07-16 12:46 | NUR ---
PT CONFUSED,AGITATED,REMAINS RESTLESS AFTER ATIVAN 1 MG PO GIVEN CALLED AND NOTIFIED,GIVE HALDOL 2MG IM ONCE PER DR ORDER O2 SAT DROPPED ON 80 ON ROOM AIR,APPLIED O2 3 L/NC,SAT UP TO 93%. INCONTINENT OF DARK YELLOW BOWEL,RHONA CARE RENDERED,BOTH ARMS AND GROINS ECCHYMOTIC,SKIN TEAT IN BOTH ARMS COVERED WITH GAUZE CORNIE FROM [facility] CALLED AND ARRANGED [facility] CRUSHER TENDER @ 0930AM TOMORROW 07/17/21, MADE AWARED.
[2021-07-16] MEDS: OCTREOTIDE ACETATE 100 MCG/ML AMP SUBCUT SCH (14:00)
[2021-07-16] MEDS: NORMAL SALINE 5 ML DISP.SYRIN IVF SCH ×2 (14:00→22:00)
[2021-07-16 15:23] VITALS: BP_SYST 130
[2021-07-16] MEDS: IBUPROFEN 600 MG TABLET PO PRN (17:30)
[2021-07-16 20:00] VITALS: BP_SYST 138
--- NOTE | 2021-07-16 22:00 | NUR ---
Rounds Pt asleep, calm, no s/s distress noted. Family stays at bedside. Bed low, locked, siderails up x4. To monitor.
[2021-07-17] MEDS: LORazepam 1 MG TABLET PO PRN
[2021-07-17 00:50] VITALS: BP_SYST 130
--- NOTE | 2021-07-17 05:30 | NUR ---
Closing notes Pt asleep, calm. No s/s distress noted. Wound dressing to marilu arm changed. Pt's daughter at bedside. Awaiting Hospice transfer this AM. Safety maintained. To endorse to AM nurse.
[2021-07-17] MEDS: NORMAL SALINE 5 ML DISP.SYRIN IVF SCH (06:00)
[2021-07-17] MEDS: OCTREOTIDE ACETATE 100 MCG/ML AMP SUBCUT SCH ×2 (06:18)
[2021-07-17 07:01] LABS: BASOPHILS % (AUTO) 0.5 % (0.0-2.0); EOSINOPHILS # (AUTO) 0.1 K/uL (0.0-0.4); EOSINOPHILS % (AUTO) 0.7 % (0.0-4.0); HEMATOCRIT 28.1 % (36-54); HEMOGLOBIN 9.5 g/dL (14.0-18.0); LYMPHOCYTES # (AUTO) 0.5 K/uL (1.0-5.5); MEAN CORPUSCULAR HEMOGLOBIN 31 pg (27-31); MEAN CORPUSCULAR HGB CONC 34 % (32-36); MEAN CORPUSCULAR VOLUME 92 fL (79.0-98.0); MONOCYTES # (AUTO) 0.9 K/uL (0.0-1.0); MONOCYTES % (AUTO) 9.1 % (1.7-9.3); NEUTROPHILS # (AUTO) 8.1 K/uL (1.8-7.7); NEUTROPHILS % (AUTO) 84.7 % (40.0-70.0); RED BLOOD CELL COUNT(AUTO) 3.07 MIL/uL (4.2-6.2); RED CELL DISTRIBUTION WIDTH 17.6 % (9.0-15.0); WHITE BLOOD COUNT (AUTO) 9.6 K/uL (4.8-10.8)
[2021-07-17 07:04] LABS: ALANINE AMINOTRANSFERASE 10 U/L (12-78); ALBUMIN 2.7 g/dL (3.4-4.8); ASPARTATE AMINOTRANSFERASE 21 U/L (10-37); BILIRUBIN,DIRECT 1.9 mg/dL (0.0-0.3); CREATININE 5.87 mg/dL (0.55-1.30); GLUCOSE 86 mg/dL (70-99); PHOSPHORUS 6.6 mg/dL (2.7-4.5); TOTAL BILIRUBIN 4.3 mg/dL (0.0-1.0); UREA NITROGEN, BLOOD 86 mg/dL (8-21)
[2021-07-17 07:38] LABS: INR 1.7 (0.80-1.20); PROTHROMBIN TIME 17.5 SECS (9.5-12.5)
[2021-07-17 07:58] LABS: ANION GAP 19 (5-15); CHLORIDE 99 mmol/L (98-107); PLATELET COUNT (AUTO) 27 K/uL (130-430); SODIUM SERUM 133 mmol/L (136-145)
[2021-07-17 08:00] VITALS: BP_SYST 78
[2021-07-17 08:11] LABS: POTASSIUM 5.4 mmol/L (3.5-5.1)
[2021-07-17] MEDS: FAMOTIDINE 20 MG TABLET PO SCH (09:00)
[2021-07-17] MEDS: ASPIRIN 81 MG TABLET(ECOTRIN) PO SCH (09:00)
[2021-07-17] MEDS: CYANOCOBALAMIN 1000 mCg TABLET PO SCH (09:00)
[2021-07-17] MEDS: MIDODRINE HCL 5 MG TABLET (PROAMATINE) PO SCH (09:00)
[2021-07-17] MEDS: SOTALOL HCL 80 MG TABLET PO SCH (09:00)
--- NOTE | 2021-07-17 09:10 | NUR ---
CM: INFORMED OF PT'S LOW BP NURSE TO CALL M.Addy FOR ORDERS, MEANWHILE [facility] MADE AWARE, WILL TX PT FOR HYPOTENSION ,CALL JOB AND Naye WITH RESULTS.
[2021-07-17 09:36] VITALS: BP_SYST 90
[2021-07-17] MEDS ORDERED: NACL 0.9% 1,000 ML IV ONE (10:30)
[2021-07-17 11:29] VITALS: BP_SYST 121
== END 2021-07-17 12:50 | disposition hospice, home (50) | DRG 432 ==
LOC: SED 08:52 → EDBD 08:52 → SMU 11:50 → STU 13:37 → SMU 07-13 18:04
PROVIDERS: ADMIT Preventive Medicine Preventive Medicine/Occupational Environmental Medicine; ATTEND Preventive Medicine Preventive Medicine/Occupational Environmental Medicine
PROC: 0W9G3ZZ Drainage of Peritoneal Cavity, Percutaneous Approach (ICD-10-PCS; principal; 2021-07-13)
PROC: 30233N1 Transfusion of Nonautologous Red Blood Cells into Peripheral Vein, Percutaneous Approach (ICD-10-PCS; 2021-07-13)
DX: K70.31 Alcoholic cirrhosis of liver with ascites (principal); E43 Unspecified severe protein-calorie malnutrition; K76.7 Hepatorenal syndrome; R78.81 Bacteremia; E87.1 Hypo-osmolality and hyponatremia; N17.9 Acute kidney failure, unspecified; K76.6 Portal hypertension; D68.59 Other primary thrombophilia; D68.9 Coagulation defect, unspecified; K92.2 Gastrointestinal hemorrhage, unspecified; I13.0 Hypertensive heart and chronic kidney disease with heart failure and stage 1 through stage 4 chronic kidney disease, or unspecified chronic kidney disease; I50.9 Heart failure, unspecified; N18.9 Chronic kidney disease, unspecified; E83.41 Hypermagnesemia; D63.1 Anemia in chronic kidney disease; E83.39 Other disorders of phosphorus metabolism; D69.59 Other secondary thrombocytopenia; E83.42 Hypomagnesemia; D73.1 Hypersplenism; B95.8 Unspecified staphylococcus as the cause of diseases classified elsewhere; Z20.822 Contact with and (suspected) exposure to COVID-19; I25.10 Atherosclerotic heart disease of native coronary artery without angina pectoris; I34.0 Nonrheumatic mitral (valve) insufficiency; I35.1 Nonrheumatic aortic (valve) insufficiency; E87.6 Hypokalemia; E83.52 Hypercalcemia; E88.09 Other disorders of plasma-protein metabolism, not elsewhere classified; Z79.82 Long term (current) use of aspirin; Z95.0 Presence of cardiac pacemaker; Z95.3 Presence of xenogenic heart valve; Z95.5 Presence of coronary angioplasty implant and graft; Z68.24 Body mass index [BMI] 24.0-24.9, adult
CPT/HCPCS: 36415; 49083; 71045; 76376; 76700-TC; 76770; 80048; 80053; 80074; 80076; 80202; 81003; 82042; 82103; 82105; 82140; 82272; 82570; 82607; 82728; 82746; 82947; 82962; 83010; 83516; 83540; 83550; 83605; 83690; 83735; 83880; 84100; 84153; 84157; 84302; 84484; 85007; 85025; 85027; 85044; 85610-TC; 85651-TC; 85730-TC; 86038; 86140; 86886; 86900; 86901; 86920; 87040; 87070-TC; 87081; 89051-TC; 89060-TC; 93005; 93306; 96374; 97116-GP; 97530-GP; 99285; G0378; J1630; J1885; J1940; J2060; J2354; J2405; J3370; J7050; P9021; P9041